=== PATIENT | male | born 1940 | race Caucasian/White ===

== ENCOUNTER 2020-04-21 09:09 | Emergency (ER) | payer MEDICARE, SELFPAY ==
--- NOTE | ~2020-04-21 | XR_ITS ---
XR shoulder RT min 2V DATE: 04/21/2020 10:41 INDICATION: Right shoulder pain and deformity following fall TECHNIQUE: 4 views COMPARISON: None FINDINGS: There is right coracoid clavicular joint separation with complete inferior displacement of the articular margin of the acromion process with respect to the lateral articular margin of the clav icle on the Neer projection. There is prominent joint space narrowing and spurring consistent with severe osteoarthritis at the ri t glenohumeral joint. No fracture is noted. No periosteal reaction or bone destruction. Degenerative spurring of the thoracic spine. 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
[2020-04-21 09:22] VITALS: BP 167/78; PULSE 79; RESP 15; TEMP 36.7; O2SAT 100
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
== END 2020-04-21 12:39 | disposition home or self-care (01) ==
PROVIDERS: Emergency Provider General Practice; PCP Family Medicine
DX: S43.141A Inferior dislocation of right acromioclavicular joint, initial encounter (principal); Y93.55 Activity, bike riding; M19.011 Primary osteoarthritis, right shoulder; V18.4XXA Pedal cycle driver injured in noncollision transport accident in traffic accident, initial encounter
CPT/HCPCS: 73030; 99283; A4565

== ENCOUNTER 2022-09-10 10:24 | Outpatient (CLI) | payer MEDICARE, SELFPAY ==
--- NOTE | 2022-09-10 10:38 | ECG_ITS ---
Measurements Intervals [place] Rate: 61 P: 51 AL: 173 QRS: -9 QRSD: 80 T: 63 QT: 416 QTc: 420 Interpretive Statements SINUS RHYTHM VENTRICULAR PREMATURE COMPLEX EARLY PRECORDIAL R/S TRANSITION BASELINE ARTIFACT- AVF, V1, V3 BORDERLINE ECG NO PREVIOUS ECG AVAILABLE FOR COMPARISON Electronically Signed On 09-10-2022 11:44:26 CDT by Christian Ponce D.O.
== END 2022-09-10 10:25 | disposition home or self-care (01) ==
PROVIDERS: PCP Nurse Practitioner Family; Visit Provider Nurse Practitioner Family
DX: I49.9 Cardiac arrhythmia, unspecified (principal); R94.31 Abnormal electrocardiogram [ECG] [EKG]
CPT/HCPCS: 93005